=== PATIENT | male | born 1980 | race Caucasian/White ===

== ENCOUNTER 2017-03-11 08:03 | Emergency (ER) | payer MEDICARE, OTHER ==
[~2017-03-11] VITALS: Ht 183.5 cm; Wt 73.0 kg
[~2017-03-11 08:03] MED LIST: CLON.5 PO; CLON0.1T PO; DIVA125SP PO; FLUP5 PO; OLAN10TA3 PO; PHENY100 PO
[2017-03-11] MEDS ORDERED: CHLO100T24 PO (08:18)
[2017-03-11] MEDS ORDERED: TOPI25 PO (08:18)
[2017-03-11] MEDS ORDERED: BENZ1TAB10 PO (08:18)
[2017-03-11] MEDS ORDERED: LEVE500T53 PO (08:18)
[2017-03-11] MEDS ORDERED: HALO10 PO (08:18)
[2017-03-11] MEDS ORDERED: LORazepam 2 MG/ML VIAL IM ONE (08:30)
[2017-03-11] MEDS ORDERED: HALOPERIDOL LACTATE 5 MG/ML VIAL IM ONE (08:30)
[2017-03-11] MEDS ORDERED: DiphenhydrAMINE HCL 50 MG/ML VIAL IM ONE (08:30)
[2017-03-11 08:40] VITALS: BP 132/87
[2017-03-11 09:03] LABS: APPEARANCE,URINE CLEAR (CLEAR); GLUCOSE, URINE (UA) NEGATIVE (NEGATIVE); KETONES,URINE NEGATIVE (NEGATIVE); LEUKOCYTE ESTERASE ,URINE NEGATIVE (NEGATIVE); OCCULT BLOOD,URINE NEGATIVE (NEGATIVE); PH,URINE 7.5 (5.0-8.0); PROTEIN,URINE NEGATIVE (NEGATIVE)
[2017-03-11 09:08] LABS: BASOPHILS % (AUTO) 0.4 % (0.0-2.0); EOSINOPHILS % (AUTO) 0.1 % (1.0-6.0); HEMATOCRIT 39.1 % (41-53); HEMOGLOBIN 13.4 g/dL (13.5-17.5); LYMPHOCYTES # (AUTO) 1.2 K/uL (1.0-4.8); LYMPHOCYTES % (AUTO) 12.9 % (22.0-44.0); MEAN CORPUSCULAR HEMOGLOBIN 32.3 pg (26.0-34.0); MEAN CORPUSCULAR HGB CONC 34.3 G/dL (31.0-37.0); MEAN CORPUSCULAR VOLUME 94 fL (80-100); MONOCYTES # (AUTO) 0.8 K/uL (0.1-1.0); MONOCYTES % (AUTO) 8.5 % (2.0-9.0); NEUTROPHILS # (AUTO) 7.5 K/uL (1.8-7.7); NEUTROPHILS % (AUTO) 78.1 % (40.0-70.0); PLATELET COUNT (AUTO) 208 K/uL (150-450); RED BLOOD CELL COUNT(AUTO) 4.16 MIL/uL (4.50-5.90); RED CELL DISTRIBUTION WIDTH 13.2 % (11.5-14.5); WHITE BLOOD COUNT (AUTO) 9.6 K/uL (4.5-11.0)
[2017-03-11 09:19] LABS: RBC,URINE 0-2 /HPF (0-2); SQUAMOUS EPITHELIAL CELL,UR Rare /LPF (None Seen); WBC,URINE 0-2 /HPF (0-5)
[2017-03-11 09:24] LABS: ANION GAP 10 mmol/L (8-16); CARBON DIOXIDE 26 mmol/L (22-29); CHLORIDE 99 mmol/L (98-107); CREATININE 0.71 mg/dL (0.60-1.30); GLOMERULAR FILTR. RATE CALC > 60 mL/min (>60); POTASSIUM 4.7 mmol/L (3.5-5.1); SODIUM SERUM 135 mmol/L (136-145); UREA NITROGEN, BLOOD 6 mg/dL (7-18)
[2017-03-11 09:29] LABS: ALANINE AMINOTRANSFERASE 40 U/L (12-78); ALBUMIN 4.2 g/dL (3.4-5.0); ASPARTATE AMINOTRANSFERASE 21 U/L (15-37); BILIRUBIN,TOTAL 0.3 mg/dL (0.1-1.0); TOTAL PROTEIN, SERUM 7.7 g/dL (6.4-8.2); VALPROIC ACID 38 mcg/mL (50-100)
[2017-03-11] MEDS: VALPROIC ACID 250 MG CAPSULE PO ONE ×2 (09:40→09:44)
[2017-03-11] MEDS ORDERED: DIVALPROEX SODIUM 125 MG DR CAPSULE PO ONE (09:45)
[2017-03-11] MEDS ORDERED: PHENYTOIN SODIUM 100 MG ER CAPSULE PO ONE (09:45)
== END 2017-03-11 10:20 | disposition home or self-care (01) ==
LOC: EMS 08:05
DX: F20.9 Schizophrenia, unspecified (principal); F41.9 Anxiety disorder, unspecified
CPT/HCPCS: 36415; 80053; 80164; 80185; 80307; 81001; 85025; 96372; 99284; G0480; J1200; J1630; J2060

== ENCOUNTER 2019-05-23 11:13 | Emergency (ER) | payer MEDICARE, OTHER ==
[~2019-05-23] VITALS: Ht 185.4 cm; Wt 94.0 kg
[~2019-05-23 11:13] MED LIST changes: +BENZ1TAB10 PO; +CHLO100T24 PO; -FLUP5 PO; +HALO10 PO; +LEVE500T53 PO; -OLAN10TA3 PO; +TOPI25 PO
[2019-05-23] MEDS ORDERED: QUET200T PO (11:37)
[2019-05-23] MEDS ORDERED: CLOM50 PO (11:37)
[2019-05-23] MEDS ORDERED: LORA-1001 PO (11:37)
[2019-05-23] MEDS ORDERED: PROP20TA18 PO (11:37)
[2019-05-23] MEDS ORDERED: FLUP10 IM (11:37)
[2019-05-23] MEDS ORDERED: DiphenhydrAMINE HCL 50 MG/ML VIAL IM ONE (11:45)
[2019-05-23] MEDS ORDERED: LORazepam 2 MG/ML VIAL IM ONE ×2 (11:45→16:45)
[2019-05-23] MEDS ORDERED: HALOPERIDOL LACTATE 5 MG/ML VIAL IM ONE (11:45)
[2019-05-23 13:02] LABS: BASOPHILS % (AUTO) 0.3 % (0.0-2.0); EOSINOPHILS % (AUTO) 1.1 % (1.0-6.0); HEMATOCRIT 38.1 % (41-53); HEMOGLOBIN 12.9 g/dL (13.5-17.5); LYMPHOCYTES # (AUTO) 1.9 K/uL (1.0-4.8); LYMPHOCYTES % (AUTO) 30.8 % (22.0-44.0); MEAN CORPUSCULAR HEMOGLOBIN 31.4 pg (26.0-34.0); MEAN CORPUSCULAR HGB CONC 33.9 G/dL (31.0-37.0); MEAN CORPUSCULAR VOLUME 93 fL (80-100); MONOCYTES # (AUTO) 0.8 K/uL (0.1-1.0); MONOCYTES % (AUTO) 12.6 % (2.0-9.0); NEUTROPHILS # (AUTO) 3.5 K/uL (1.8-7.7); NEUTROPHILS % (AUTO) 55.2 % (40.0-70.0); PLATELET COUNT (AUTO) 125 K/uL (150-450); RED BLOOD CELL COUNT(AUTO) 4.11 MIL/uL (4.50-5.90); RED CELL DISTRIBUTION WIDTH 14.1 % (11.5-14.5)
[2019-05-23 13:22] LABS: ANION GAP 5 mmol/L (8-16); CALCIUM, TOTAL 8.5 mg/dL (8.8-10.5); CARBON DIOXIDE 27 mmol/L (22-29); CHLORIDE 101 mmol/L (98-107); CREATININE 0.82 mg/dL (0.60-1.30); GLOMERULAR FILTR. RATE CALC > 60 mL/min (>60); GLUCOSE,RANDOM 86 mg/dL (70-110); SODIUM SERUM 133 mmol/L (136-145); UREA NITROGEN, BLOOD 12 mg/dL (7-18)
[2019-05-23 13:28] LABS: ALANINE AMINOTRANSFERASE 45 U/L (12-78); ALBUMIN 3.4 g/dL (3.4-5.0); ALKALINE PHOSPHATASE 39 U/L (46-116); ASPARTATE AMINOTRANSFERASE 23 U/L (15-37); BILIRUBIN,TOTAL 0.2 mg/dL (0.1-1.0); TOTAL PROTEIN, SERUM 7.2 g/dL (6.4-8.2); VALPROIC ACID 62 mcg/mL (50-100)
[2019-05-23 13:30] LABS: PHENYTOIN (DILANTIN) < 0.5 mcg/mL (10.0-20.0)
[2019-05-24] MEDS ORDERED: LORazepam 2 MG/ML VIAL IM ONE ×2 (03:00→07:45)
[2019-05-24] MEDS ORDERED: DiphenhydrAMINE HCL 50 MG/ML VIAL IM ONE (07:45)
[2019-05-24] MEDS ORDERED: HALOPERIDOL LACTATE 5 MG/ML VIAL IM ONE (07:45)
[2019-05-24 09:35] VITALS: BP 129/70
== END 2019-05-24 09:40 | disposition home or self-care (01) ==
LOC: EMS 11:14
DX: F20.9 Schizophrenia, unspecified (principal); R45.1 Restlessness and agitation; F41.9 Anxiety disorder, unspecified; Z79.899 Other long term (current) drug therapy
CPT/HCPCS: 36415; 80053; 80164; 80185; 85025; 96372 ×2; 99285; G0480; J1200 ×2; J1630 ×2; J2060 ×2

== ENCOUNTER 2019-06-11 18:55 | Emergency (ER) | payer MEDICARE, OTHER ==
[~2019-06-11] VITALS: Ht 182.9 cm; Wt 81.8 kg
[~2019-06-11 18:55] MED LIST changes: +CLOM50 PO; -CLON.5 PO; +FLUP10 IM; +LORA-1001 PO; +PROP20TA18 PO; +QUET200T PO
[2019-06-11 20:05] LABS: BASOPHILS % (AUTO) 0.3 % (0.0-2.0); EOSINOPHILS % (AUTO) 1.3 % (1.0-6.0); HEMATOCRIT 36.9 % (41-53); HEMOGLOBIN 12.5 g/dL (13.5-17.5); LYMPHOCYTES # (AUTO) 2.5 K/uL (1.0-4.8); LYMPHOCYTES % (AUTO) 37.1 % (22.0-44.0); MEAN CORPUSCULAR HEMOGLOBIN 31.1 pg (26.0-34.0); MEAN CORPUSCULAR HGB CONC 33.8 G/dL (31.0-37.0); MEAN CORPUSCULAR VOLUME 92 fL (80-100); MONOCYTES # (AUTO) 0.8 K/uL (0.1-1.0); MONOCYTES % (AUTO) 12.2 % (2.0-9.0); NEUTROPHILS # (AUTO) 3.3 K/uL (1.8-7.7); NEUTROPHILS % (AUTO) 49.1 % (40.0-70.0); PLATELET COUNT (AUTO) 131 K/uL (150-450); RED BLOOD CELL COUNT(AUTO) 4.02 MIL/uL (4.50-5.90); RED CELL DISTRIBUTION WIDTH 13.7 % (11.5-14.5)
[2019-06-11 20:19] LABS: ANION GAP 7 mmol/L (8-16); CARBON DIOXIDE 27 mmol/L (22-29); CHLORIDE 100 mmol/L (98-107); CREATININE 0.86 mg/dL (0.60-1.30); GLOMERULAR FILTR. RATE CALC > 60 mL/min (>60); GLUCOSE,RANDOM 109 mg/dL (70-110); POTASSIUM 4.8 mmol/L (3.5-5.1); SODIUM SERUM 134 mmol/L (136-145); UREA NITROGEN, BLOOD 18 mg/dL (7-18)
[2019-06-11 20:25] LABS: ALANINE AMINOTRANSFERASE 40 U/L (12-78); ALBUMIN 3.4 g/dL (3.4-5.0); ALKALINE PHOSPHATASE 34 U/L (46-116); ASPARTATE AMINOTRANSFERASE 20 U/L (15-37); BILIRUBIN,TOTAL 0.2 mg/dL (0.1-1.0); TOTAL PROTEIN, SERUM 7.1 g/dL (6.4-8.2)
[2019-06-11] MEDS ORDERED: LORazepam 1 MG TABLET PO ONE (20:45)
[2019-06-11] MEDS ORDERED: HALO5TAB2 PO (20:48)
[2019-06-11 21:21] VITALS: BP 136/91
== END 2019-06-11 22:16 | disposition home or self-care (01) ==
LOC: EMS 18:57
DX: R45.1 Restlessness and agitation (principal); F20.9 Schizophrenia, unspecified; F41.9 Anxiety disorder, unspecified; Z79.899 Other long term (current) drug therapy
CPT/HCPCS: 36415; 80053; 85025; 99285; G0480

== ENCOUNTER → 2022-08-26 | Day surgery (SDC) | payer OTHER, MEDICARE ==
[~2022-08-26] VITALS: Ht 182.9 cm; Wt 85.0 kg
[~2022-08-26] MED LIST changes: +AMPICILLIN SODIUM 2 GM/NS 100 ML IV ONE; -BENZ1TAB10 PO; +BENZ1TAB84 PO; -CHLO100T24 PO; +CHLO100T42 PO; +DEXAMETHASONE SOD PHOS 4 MG/ML VIAL IVP ONE; +DIVA125C20 PO; -DIVA125SP PO; -FLUP10 IM; +FLUP10TA28 IM; +FentaNYL CITRATE PF 100 MCG/2 ML VIAL IVP ONE; -HALO10 PO; +HALO5TAB2 PO; +KETAMINE HCL 50 MG/ML 10 ML VIAL IVP ONE; +LEVE500T20 PO; -LEVE500T53 PO; +LIDOCAINE/PF 2% 5 ML VIAL IM ONE; +MIDAZOLAM HCL 2 MG/2 ML VIAL IVP ONE; +MIDAZOLAM HCL 5 MG/ML VIAL ONE; +ONDANSETRON HCL 4 MG/2 ML VIAL IVP ONE; +PHEN100C10 PO; -PHENY100 PO; +PROPOFOL 1% 20 ML VIAL IVP ONE; +RINGERS SOLUTION,LACTATED 1,000 ML IV ONE; +ROCURONIUM BROMIDE 10 MG/ML 5 ML VIAL IVP ONE
== END | disposition still patient (30) ==
LOC: SURGERY 06:43
PROVIDERS: ATTEND Dentist General Practice
DX: K02.9 Dental caries, unspecified (principal); K03.6 Deposits [accretions] on teeth; K05.30 Chronic periodontitis, unspecified; F84.0 Autistic disorder; F20.9 Schizophrenia, unspecified; I10 Essential (primary) hypertension; Z79.899 Other long term (current) drug therapy; Z98.890 Other specified postprocedural states; G40.909 Epilepsy, unspecified, not intractable, without status epilepticus
CPT/HCPCS: 41899; J0290; J2704; J1100; J3010; J3490 ×3; J2250 ×2; J2405; J7120